=== PATIENT | male | born 1950 | race Caucasian/White ===

== ENCOUNTER 2021-04-03 11:35 | Day surgery (SDC) | payer MEDICARE, OTHER ==
[~2021-04-03 11:35] MED LIST: LEVOTHYROXIN150 MCG PO; LISINOPRIL10 MG PO; METFORMIN HCL1000 MG PO; OMEPRAZOLE DR20 MG PO; OXYBUTYNIN CHLOR5 M1 PO; SAW PALMETT3 PO; [UNRECOGNIZED DRUG - OTHER] PO
[2021-04-03] MEDS ORDERED: TRULICITY0.75 MG/0. IJ (11:58)
[2021-04-03 16:44] VITALS: BP 170/79
== END 2021-04-03 17:10 | disposition home or self-care (01) ==
LOC: ENDO 11:35 → ORM 12:00 → ENDO 17:10
PROVIDERS: ATTEND Urology
PROC: 0TBB8ZX Excision of Bladder, Via Natural or Artificial Opening Endoscopic, Diagnostic (ICD-10-PCS; principal; 2021-04-03)
DX: D09.0 Carcinoma in situ of bladder (principal); N40.1 Benign prostatic hyperplasia with lower urinary tract symptoms; N13.8 Other obstructive and reflux uropathy; E03.9 Hypothyroidism, unspecified; E11.9 Type 2 diabetes mellitus without complications; I10 Essential (primary) hypertension; Z87.891 Personal history of nicotine dependence; Z79.84 Long term (current) use of oral hypoglycemic drugs
CPT/HCPCS: J0131; J1956

== ENCOUNTER 2023-05-10 15:40 | Emergency (ER) | payer MEDICARE, OTHER ==
[~2023-05-10] VITALS: Ht 175.3 cm; Wt 74.8 kg
[2023-05-10] VITALS (12 sets, daily range): BP systolic 106–143; BP diastolic 66–115
[~2023-05-10 15:40] MED LIST changes: +TRULICITY0.75 MG/0. IJ
[2023-05-10] MEDS ORDERED: JANUVIA100 MG PO (16:05)
[2023-05-10 17:31] LABS: BASO% 0.3 % (0-3); EOS% 1.4 % (0-8); HEMATOCRIT 43.3 % (39.0-50.0); HEMOGLOBIN 14.5 g/dl (14.0-18.0); IMMATURE GRANULOCYTES 0.6 % (0.0-5.0); LYMPH% 33.4 % (15-41); MEAN CELL VOLUME 92.7 fL CALC (80.0-100.0); MEAN CORPUSCULAR HGB CONC 33.5 g/dL CAL (32.0-36.0); MONO% 9.6 % (2-13); NEUT# 4.86 thou/uL (1.82-7.42); NEUT% 54.7 % (42-76); RED BLOOD COUNT 4.67 mill/uL (4.70-6.10); RED CELL DISTRI WIDTH 11.6 % (11.5-15.5)
[2023-05-10 17:52] LABS: ALBUMIN 4.7 g/dL (3.2-5.0); ALKALINE PHOSPHATASE 87 u/l (38-126); ANION GAP 16 (6-22 (CALC)); BILIRUBIN, TOTAL 0.5 mg/dL (0.2-1.3); BUN 14 mg/dL (8-23); BUN/CREATININE RATIO 17 (12-20 (CALC)); CARBON DIOXIDE 28 mmol/l (22-30); CHLORIDE 95 mmol/l (95-108); CREATININE 0.9 mg/dL (0.7-1.3); GFR FOR AFR.AMER. > 60 ML/MIN (>=60 (CALC)); GFR OTHER RACES > 60 ML/MIN (>=60 (CALC)); SGOT/AST 29 u/l (19-48); SODIUM 135 mmol/l (137-146); TOTAL PROTEIN 8.3 g/dL (6.3-8.2)
[2023-05-10 17:56] LABS: INTERNATIONAL NORMALIZED RATIO 1.1 RATIO (0.7-1.3); PROTHROMBIN TIME 10.2 SECONDS (9.0-12.5)
[2023-05-10 18:00] LABS: POTASSIUM 3.9 mmol/l (3.5-5.1)
== END 2023-05-10 21:10 | disposition short-term general hospital (02) ==
LOC: ED 15:40
PROVIDERS: Emergency Medicine
DX: I62.01 Nontraumatic acute subdural hemorrhage (principal); I62.03 Nontraumatic chronic subdural hemorrhage; R53.1 Weakness; I10 Essential (primary) hypertension; E11.9 Type 2 diabetes mellitus without complications; Z87.820 Personal history of traumatic brain injury; Z79.84 Long term (current) use of oral hypoglycemic drugs